=== PATIENT | female | born 1990 | race Caucasian/White ===

== ENCOUNTER 2020-01-24 18:43 | Emergency (ER) | payer MEDICAID, OTHER ==
[~2020-01-24] VITALS: Ht 149.9 cm; Wt 86.2 kg
[2020-01-24 18:43] VITALS: BP 131/84
--- NOTE | 2020-01-24 20:30 | NUR ---
PT AMBULATED TO BED 01 WITH STEADY GAIT.
--- NOTE | 2020-01-24 21:05 | NUR ---
29 Y/O FEMALE WHO IS 7 WEEKS C/O 7 WEEKS C/O COUGH W/GREEN PHLEGM X 3/4 DAYS / SUBJECTIVE FEVER/+N/V; PT STATES POST NAPS SHE FEELS LIKE HER WHOLE BODY ACHES/ SORE THROAT; DENIES DIARRHEA; SKIN IS PINK/WARM/DRY; AAOX4 WITH EVEN AND STEADY GAIT; PT DENIES ANY CP, SOB AT THIS TIME; PATIENT STATES PAIN OF 2/10 AT THIS TIME; VSS; PATIENT POSITIONED FOR COMFORT; HOB ELEVATED; BEDRAILS UP X2; BED DOWN AND LOCKED. PMH:PT DENIES NKA
[2020-01-24 21:49] LABS: BASOPHILS # (AUTO) 0.1 K/uL (0.00-0.22); BASOPHILS % (AUTO) 0.5 % (0.0-2.0); EOSINOPHILS # (AUTO) 0.2 K/uL (0-0.4); EOSINOPHILS % (AUTO) 1.8 % (0.0-4.0); HEMATOCRIT 37.9 % (36-48); HEMOGLOBIN 12.5 g/dL (12.0-16.0); LYMPHOCYTES # (AUTO) 1.9 K/uL (2.5-16.5); LYMPHOCYTES % (AUTO) 16.9 % (20.5-51.1); MEAN CORPUSCULAR HEMOGLOBIN 29 pg (27-31); MEAN CORPUSCULAR HGB CONC 33 g/dL (33-37); MEAN CORPUSCULAR VOLUME 87.8 fL (80-94); MONOCYTES # (AUTO) 0.8 K/uL (0.8-1.0); NEUTROPHILS # (AUTO) 8.2 K/uL (1.8-7.7); NEUTROPHILS % (AUTO) 73.8 % (42.2-75.2); PLATELET COUNT (AUTO) 282 K/uL (140-450); RED BLOOD CELL COUNT(AUTO) 4.32 MIL/uL (4.20-5.40); RED CELL DISTRIBUTION WIDTH 13.1 % (11.6-13.7); WHITE BLOOD COUNT (AUTO) 11.1 K/uL (4.8-10.8)
--- NOTE | 2020-01-24 21:53 | NUR ---
US AT BEDSIDE
[2020-01-24 22:07] LABS: ALBUMIN 3.6 g/dL (3.4-5.0); ANION GAP 13.8 (8-16); CARBON DIOXIDE 24.9 mmol/L (21-32); CREATININE 0.6 mg/dL (0.6-1.3); POTASSIUM 3.7 mmol/L (3.5-5.1); TOTAL BILIRUBIN 0.2 mg/dL (0.0-1.0)
[2020-01-24] MEDS: NACL 0.9% 1,000 ML IV ONE (22:23)
[2020-01-24] MEDS: ONDANSETRON 4 MG/2 ML VIAL IVP ONE (22:28)
[2020-01-24 22:47] LABS: APPEARANCE,URINE SL CLOUDY (CLEAR); BILIRUBIN,URINE NEGATIVE (NEGATIVE); BLOOD, URINE NEGATIVE (NEGATIVE); COLOR,URINE YELLOW (YELLOW); LEUKOCYTE ESTERASE ,URINE NEGATIVE (NEGATIVE); NITRITE, URINE NEGATIVE (NEGATIVE); UGLUCOSE NEGATIVE (NEGATIVE)
[2020-01-24 23:21] VITALS: BP 131/84
--- NOTE | 2020-01-24 23:21 | NUR ---
Patient discharged with v/s stable BY . Written and verbal after care instructions given and explained BY . Patient alert, oriented and verbalized understanding of instructions. Ambulatory with steady gait. All questions addressed prior to discharge BY . ID band removed. Patient advised to follow up with PMD BY . Rx of ZOFRAN given. Patient educated on indication of medication including possible reaction and side effects BY . Opportunity to ask questions provided and answered BY .
== END 2020-01-24 23:21 | disposition home or self-care (01) ==
LOC: MED 18:43
DX: O21.0 Mild hyperemesis gravidarum (principal); O99.511 Diseases of the respiratory system complicating pregnancy, first trimester; J20.8 Acute bronchitis due to other specified organisms; B97.89 Other viral agents as the cause of diseases classified elsewhere; R11.10 Vomiting, unspecified; Z3A.01 Less than 8 weeks gestation of pregnancy
CPT/HCPCS: 36415; 76801; 80053; 81003; 84702; 85025; 86900; 86901; 96361; 96374; 99284; J2405; J7030; Q0092

== ENCOUNTER 2021-06-30 10:08 | Emergency (ER) | payer MEDICAID, OTHER ==
[~2021-06-30] VITALS: Ht 149.9 cm; Wt 88.9 kg
[2021-06-30 10:11] VITALS: BP 181/97
--- NOTE | 2021-06-30 10:49 | NUR ---
DR CORTES MADE AWARE
[2021-06-30] MEDS ORDERED: HYDROcodone/APAP 5/325 MG 1 TAB TAB PO ONE (10:50)
[2021-06-30] MEDS ORDERED: SULFAMETH/TRIMETH DS 800/160MG 1 TAB PO ONE (10:50)
[2021-06-30] MEDS ORDERED: LIDOCAINE MPF 1% 10 MG/ML VIAL INJ ONE (10:50)
[2021-06-30] MEDS ORDERED: cephALEXin 500 MG CAP PO ONE (10:50)
--- NOTE | 2021-06-30 11:02 | NUR ---
30 years old female walking to er c/o pubic area red with small abcess. denies fever/chills.
--- NOTE | 2021-06-30 11:16 | NUR ---
I&D TRAY SET UP BEDSIDE.
[2021-06-30] MEDS ORDERED: CEPH-588 PO (12:18)
[2021-06-30] MEDS ORDERED: ACET-8386 PO (12:18)
[2021-06-30] MEDS ORDERED: SULF-59 PO (12:18)
[2021-06-30 12:24] VITALS: BP 181/97
--- NOTE | 2021-06-30 12:26 | NUR ---
Patient discharged with v/s stable. Written and verbal after care instructions given FOR SKIN ABSESS and explained. Patient alert, oriented and verbalized understanding of instructions. Ambulatory with steady gait. All questions addressed prior to discharge. ID band removed. Patient advised to follow up with PMD. Rx of NORCO, KEFLEX, AND BACTRIM given. Patient educated on indication of medication including possible reaction and side effects. Opportunity to ask questions provided and answered.
== END 2021-06-30 12:26 | disposition home or self-care (01) ==
LOC: MED 10:08
DX: L02.211 Cutaneous abscess of abdominal wall (principal); Z98.890 Other specified postprocedural states
CPT/HCPCS: 10060; 99284; J2001

== ENCOUNTER 2021-07-03 23:07 | Emergency (ER) | payer OTHER ==
[~2021-07-03] VITALS: Ht 180.3 cm; Wt 89.5 kg
[~2021-07-03 23:07] MED LIST: ACET-8386 PO; CEPH-588 PO; SULF-59 PO
[2021-07-03 23:27] VITALS: BP 169/117
--- NOTE | 2021-07-04 00:35 | NUR ---
pt ambulated to bed 07.
--- NOTE | 2021-07-04 00:40 | NUR ---
RECEIVED PT IN BED 7 WITH C/O "I FEEL LIKE MY BP IS HIGH". PT ALSO STATES SHE HAD I & D OF SUPRAPUBIC ABSCESS AND NEEDS RECHECK denies hx, rx and allergies.
--- NOTE | 2021-07-04 02:10 | NUR ---
DR. MARTINEZ AT BEDSIDE FOR EXAM
[2021-07-04 03:27] VITALS: BP 124/84
--- NOTE | 2021-07-04 03:27 | NUR ---
Patient discharged with v/s stable. Written and verbal after care instructions given and explained. Patient verbalized understanding. Ambulatory with steady gait. All questions addressed prior to discharge. Advised to follow up with PMD.
== END 2021-07-04 03:27 | disposition home or self-care (01) ==
LOC: MED 23:07
DX: I10 Essential (primary) hypertension (principal); Z48.00 Encounter for change or removal of nonsurgical wound dressing
CPT/HCPCS: 93005; 99283

== ENCOUNTER 2021-11-05 19:58 | Emergency (ER) | payer OTHER ==
--- NOTE | 2021-11-05 21:25 | NUR ---
CALLED TO TRIAGE X 3, 15 MINUTES APART, NO ANSWER. PT LWBS
== END 2021-11-05 21:25 | disposition left against medical advice (07) ==
LOC: MED 19:58
DX: M79.646 Pain in unspecified finger(s) (principal); Z53.21 Procedure and treatment not carried out due to patient leaving prior to being seen by health care provider